=== PATIENT | female | born 1980 | race Caucasian/White ===

== ENCOUNTER 2020-01-26 18:49 | Emergency (ER) | payer OTHER ==
[~2020-01-26] VITALS: Ht 157.5 cm; Wt 90.3 kg
[2020-01-26 18:51] VITALS: Ht 157.5 cm; Wt 90.3 kg
[2020-01-26 19:48] LABS: BASOPHIL % 1.4 % (0-2); PLATELET COUNT 314 x10^3mcL (130-400)
[2020-01-26 19:49] LABS: RED CELL DISTRIBUTION WIDTH 17.4 % (11.5-14.5)
[2020-01-26 20:21] LABS: rbc morphology (normal/abnorm) ABNORMAL (NORMAL)
[2020-01-27 00:54] VITALS: BP 133/82
== END 2020-01-27 00:54 | disposition home or self-care (01) ==
LOC: ED 18:49
PROVIDERS: Emergency Medicine
DX: D64.9 Anemia, unspecified (principal); D25.9 Leiomyoma of uterus, unspecified; E78.00 Pure hypercholesterolemia, unspecified; I10 Essential (primary) hypertension
CPT/HCPCS: 36415; J7040; J7050; P9016; Q0092